=== PATIENT | male | born 1990 | race African-American/Black ===

== ENCOUNTER 2020-04-04 05:29 | Emergency (ER) | payer SELFPAY ==
[2020-04-04] VITALS (7 sets, daily range): BP systolic 131–170; BP diastolic 92–128; PULSE 70–93; RESP 16–20; TEMP 36.8; O2SAT 96–100
--- NOTE | ~2020-04-04 | XR_ITS ---
EXAMINATION: XR chest 1V portable EXAM DATE: 04/04/2020 06:17 INDICATION: Difficulty breathing. TECHNIQUE: Portable AP frontal chest x-ray was obtained. There is no prior study for comparison. FINDINGS: The lungs are clear. There are no pleural effusions. The cardiomediastinal silhouette is within normal limits. There is no pneumothorax suspected. The bones and soft tissues are unremarkab le. IMPRESSION: No acute cardiopulmonary findings. Reviewed, dictated and finalized at location B.
--- NOTE | ~2020-04-04 | CT_ITS ---
EXAMINATION: CT soft tissue neck w con EXAM DATE: 04/04/2020 07:05 INDICATION: Throat pain. TECHNIQUE: Spiral CT of the neck was performed following intravenous injection of 75 mL Omnipaque 350 . Axial, coronal and sagittal images were reviewed. The dose-length product (DLP) for this examinat ion was 492.47 mGy-cm. The exposure was tailored according to patient size (auto mA exposure control ), and iterative reconstruction (ASIR) was used as additional dose reduction technique. There is no prior study for comparison. FINDINGS: The thyroid gland is unremarkable. The submandibular and parotid glands are symmetric. There is no cervical lymphadenopathy. There are no masses identified. The superior mediastinum is unremarkable. The airway is unremarkable. Parapharyngeal and pre-glottic fat planes are preserve d. The opacified vasculature is patent. The orbits are unremarkable. Visualized sinuses and mas toid air cells are well aerated. Clear lung apices. There are no osseous abnormalities identified. IMPRESSION: Unremarkable CT neck exam. Reviewed, dictated and finalized at location B. IMPRESSION: Unremarkable CT neck exam.
--- NOTE | 2020-04-04 05:38 | ECG_ITS ---
Measurements Intervals [place] Rate: 87 P: 31 DE: 132 QRS: 15 QRSD: 113 T: 7 QT: 367 QTc: 443 Interpretive Statements SINUS RHYTHM INTRAVENTRICULAR CONDUCTION DELAY VOLTAGE CRITERIA FOR LVH MINIMAL Q WAVES- HIGH LATERAL LEADS NONSPECIFIC T-WAVE ABNORMALITY- INFERIOR LEADS BASELINE ARTIFACT- II, III, AVL, AVF BORDERLINE ECG Electronically Signed On 04-05-2020 14:21:31 CDT by Galen Baumann D.O.
--- NOTE | 2020-04-04 05:49 | ED.GENADULT ---
HPI - General Adult General Chief complaint: Shortness of Breath/Dyspnea <Martín Perea DO - Last Filed: 04/04/20 06:19> Stated complaint: sob <Martín Perea DO - Last Filed: 04/04/20 06:19> Time Seen by Provider: 04/04/20 05:33 <Martín Perea DO - Last Filed: 04/04/20 06:19> Source: RN notes reviewed <Martín Perea DO - Last Filed: 04/04/20 06:19> History of Present Illness HPI narrative: Patient presents emergency department from home for shortness of breath. Patient states that for the past several months he has been having a feeling that something is been stuck in his throat. He states at times it feels like it is hard to swallow he states that this evening he was laying in bed and was having difficult time and he began to feel more short of breath. He states at that time he began to hyperventilate and had tingling in his bilateral hands. He denies any fevers or chills chest pain abdominal pain nausea vomiting or any other symptoms. Patient states he took no previous medication for the symptoms <Martín Perea DO - Last Filed: 04/04/20 06:19> Related Data Allergies/adverse reactions: Allergies Allergy/AdvReac Type Severity Reaction Status Date / Time No Known Allergies Allergy Verified 04/04/20 05:43 <Martín Perea DO - Last Filed: 04/04/20 06:19> Review of Systems Review of Systems: Narrative: Gen.: Denies fevers or chills Eyes: Denies eye pain or visual change ENT: Reports feeling of something stuck in his throat Respiratory: Reports shortness of breath CV: Denies chest pain or palpitations GI: Denies abdominal pain nausea, emesis or diarrhea denies burning, urgency, frequency or hematuria Musculoskeletal: Denies back pain or muscle pain Neuro: Denies numbness, tingling, weakness or focal weakness Skin: Denies rash Except as documented, all other systems reviewed and negative <DO Cirilo Perry Last Filed: 04/04/20 06:19> PMFSH Past Medical History Medical History: Medical History (Updated 04/04/20 @ 08:47 by Alina Noe MD) Patient denies significant medical history <Martín Perea DO - Last Filed: 04/04/20 06:19> Social History Social History: Social History (Updated 04/04/20 @ 05:50 by Martín Perea DO) Smoking status: Never smoker <Martín Perea DO - Last Filed: 04/04/20 06:19> Exam Narrative: Exam Narrative: APPEARANCE: Anxious in appearance, nontoxic, resting in bed EYES: EOMI HEENT: Normocephalic, atraumatic, OMM, airway patent voice normal, uvula midline Neck: Supple, nontender to palpation RESPIRATORY: No respiratory distress Clear to auscultation bilaterally with no rhonchi wheezing or rales. CARDIOVASCULAR: Regular rate and rhythm without murmurs rubs or gallops. ABDOMINAL: Soft, nontender, nondistended, no rebound or guarding MUSCULOSKELETAl: Moves all extremities. No clubbing, cyanosis or edema. NEURO: Awake and alert. Following commands, speech normal, no focal deficits SKIN:: Warm, dry. No rashes lesions or abrasions PSYCHIATRIC: Anxious in appearance <Martín Perea DO - Last Filed: 04/04/20 06:19> Course Reevaluation(s) Reevaluation #1: Patient is laying in bed in no acute distress and able to handle secretions. I discussed with patient and family that he will need to follow up . Ct was unremarkable and he will need to follow up with GI as an outpatient. <Alina Noe MD - Last Filed: 04/04/20 18:14> Date: 04/04/20 <Alina Noe MD - Last Filed: 04/04/20 18:14> Time: 08:45 <Alina Noe MD - Last Filed: 04/04/20 18:14> Vital Signs Vital signs: Vital Signs Temperature 98.2 F 04/04/20 05:37 Pulse Rate 93 04/04/20 05:37 Respiratory Rate 20 04/04/20 05:37 Blood Pressure 170/128 H 04/04/20 05:37 Pulse Oximetry 98 04/04/20 05:37 Temperature 98.2 F 04/04/20 05:37 Pulse Rate 70 04/04/20 09:00 Respiratory
[2020-04-04] MEDS: LORazepam INJ (*CRX) 2 MG/ML VIAL 0.5 MG IV PUSH (05:55)
[2020-04-04] MEDS: SODIUM CHLORIDE 0.9% IV 1,000 ML 999 ML IV CONT (05:56)
[2020-04-04 06:08] LABS: Basophils Absolute Auto 0.1 K/mm3 (0.0-0.1); Basophils Percent Auto 1.1 % (0.2-1.2); Eosinophils Absolute Auto 0.3 K/mm3 (0-0.3); Eosinophils Percent Auto 3.9 % (0-4.4); Hematocrit 45.9 % (42.0-52.0); Hemoglobin 15.1 g/dL (14.0-18.0); Immature Granulocyte Absolute 0.02 K/mm3 (0.00-0.031); Immature Granulocyte Percent A 0.3 % (0-0.5); Lymphocytes Absolute Auto 3.61 K/mm3 (0.9-3.2); Lymphocytes Percent Auto 48.9 % (18.3-44.2); Mean Corpuscular HGB Conc 32.9 g/dl (32-36); Mean Corpuscular Hemoglobin 28.6 pg (26-34); Mean Corpuscular Volume 86.9 fl (80-100); Mean Platelet Volume 11.4 fl (7.4-10.4); Monocytes Absolute Auto 0.7 K/mm3 (0.1-0.6); Monocytes Percent Auto 9.9 % (2.6-8.5); Neutrophils Absolute Auto 2.7 K/mm3 (1.3-6.7); Neutrophils Percent Auto 35.9 % (45.5-73.1); Platelet Count Result 279 k/mm3 (150-375); Red Blood Count 5.28 M/mm3 (4.6-6.20); Red Cell Distribution Width 13.8 % (11.5-14.5); White Blood Count 7.4 K/mm3 (4.5-10.0)
[2020-04-04 06:33] LABS: Alanine Aminotransferase 14 U/L (4-50); Albumin Level 4.7 g/dL (3.5-5.1); Alkaline Phosphatase 62 U/L (38-126); Anion Gap 12 mmol/L (8-16); Aspartate Amino Transferase 22 U/L (17-59); Bilirubin,Total 0.4 mg/dL (0.2-1.3); Blood Urea Nitrogen 18 mg/dL (9-20); Calcium 9.2 mg/dL (8.4-10.2); Carbon Dioxide 27 mmol/L (22-30); Chloride 103 mmol/L (98-107); Estimated CRCL calculation 94 ml/min; Estimated Glomerular Filt Rate > 60; Glucose 163 mg/dL (75-110); Potassium 2.8 mmol/L (3.4-5.0); Sodium 142 mmol/L (137-145)
[2020-04-04 06:39] LABS: Troponin I < 0.012 ng/mL (0.000-0.034)
[2020-04-04] MEDS: POTASSIUM CHLORIDE 20 MEQ TABLET 40 MEQ PO (06:59)
[2020-04-04 07:30] LABS: Magnesium 2.1 mg/dL (1.6-2.3)
== END 2020-04-04 09:00 | disposition home or self-care (01) ==
PROVIDERS: Emergency Medicine; Emergency Provider General Practice
DX: R13.10 Dysphagia, unspecified (principal); I45.9 Conduction disorder, unspecified; R94.31 Abnormal electrocardiogram [ECG] [EKG]
CPT/HCPCS: 36415; 70491; 71045; 80053; 83735; 84484; 85025; 93005; 96361; 96374; 99284; A9270; J2060; J7030; Q9967

== ENCOUNTER 2025-01-27 11:48 | Emergency (ER) | payer OTHER, SELFPAY ==
[2025-01-27 11:59] VITALS: BP 150/104; PULSE 68; RESP 18; TEMP 36.8; O2SAT 100
--- NOTE | 2025-01-27 12:06 | ED_ITS ---
HPI - General Adult General Chief complaint: Upper Respiratory Infection Stated complaint: Facial Pain/Sore Throat Time Seen by Provider: 01/27/25 12:06 Source: patient Mode of arrival: ambulatory Limitations: no limitations History of Present Illness HPI narrative: 34-year-old male patient presents to the [facility] with complaints of right- sided throat pain that has been going on for about a year now. Patient also states that having slight mouth pain to the right side and states that whenever he has his ear noticed some red bumps on his head. Denies fevers body aches or chills. Patient states at times he takes the Tylenol and ibuprofen for his pain. Patient denies having a primary doctor. Denies any chest pain or shortness of breath. Denies any abdominal pain nausea vomiting or diarrhea. Related Data Home Medications ?Medication ?Instructions ?Recorded ?Confirmed ?Last Taken ?Type No Home Medications 01/27/25 01/27/25 Unknown History Allergies Allergy/AdvReac Type Severity Reaction Status Date / Time No Known Allergies Allergy Verified 01/27/25 12:17 Review of Systems Review of Systems: CONSTITUTIONAL: Denies fever, chills, or sweats. EYES: Denies visual changes, redness, or discharge. ENT: Denies rhinorrhea, congestion, positive right-sided sore throat, denies otalgia. Positive dental pain to bottom right CARDIOVASCULAR: Denies chest pain, palpitations, or edema. RESPIRATORY: Denies cough or dyspnea. GASTROINTESTINAL: Denies abdominal pain, nausea, vomiting, or diarrhea. GENITOURINARY: Denies dysuria or hematuria. SKIN: Denies rash or itching. Positive rash to head after cutting his hair MUSCULOSKELETAL: Denies back pain, joint pain, or myalgia. NEUROLOGIC: Denies headache, numbness, or weakness. PSYCHIATRIC: Denies anxiety or depression. PMFSH Past Medical History Medical History Patient denies significant medical history Social History Social History Smoking status: Never smoker Comments At the time of my signature I agree with nursing past medical history, surgical, social, and family history. There is no relevant family history pertinent to the presenting complaint. Exam Narrative: GENERAL: Well-appearing, well-nourished, and in no acute distress. HEAD: Normocephalic, atraumatic. No obvious rash noted at this time to the head. EYES: PERRLA and EOMI. ENT: Nares clear, no rhinorrhea or epistaxis. Mucous membranes moist. Posterior pharynx with no erythema, tonsillar enlargement, exudates or lesions present. Bilateral TMs are clear no erythema or foreign bodies the canal. Patient does have a broken molar noted to the bottom right side. There is no erythema or tenderness noted to the gum at this time and no evidence of an infection. NECK: Supple. No obvious lymphadenopathy CHEST: Clear to auscultation. No respiratory distress. HEART: Regular rate and rhythm. No murmur heard. Normal peripheral pulses. ABDOMEN: Soft, nontender, nondistended, normal active bowel sounds. EXTREMITIES: Normal range of motion. No edema. SKIN: Warm, dry, no rash. NEURO: No focal deficits. Alert and oriented x3. Course Course Level of Care: Express Care Visit Vital Signs Vital signs: Vital Signs Temperature 36.8 C 01/27/25 11:59 Pulse Rate 68 01/27/25 11:59 Respiratory Rate 18 01/27/25 11:59 Blood Pressure 150/104 H 01/27/25 11:59 Pulse Oximetry 100 01/27/25 11:59 Oxygen Delivery Room Air 01/27/25 11:59 Temperature 36.8 C 01/27/25 11:59 Pulse Rate 68 01/27/25 11:59 Respiratory Rate 18 01/27/25 11:59 Blood Pressure 150/104 H 01/27/25 11:59 Pulse Oximetry 100 01/27/25 11:59 Oxygen Delivery Room Air 01/27/25 11:59 Vital signs reviewed. The patient has been informed that they may have pre-hypertension or Hypertension based on a BP reading in the department. I recommend that the patient call the primary care provider listed on their discharge instructions or a physician of their choice this week to arrange follow up for further evaluation of possible pre-hypertension or Hypertension Medical Decision Making MDM Narrative Medical decision making narrative: Discussed with patient that his point of care strep test has come back negative. We will send it to the lab for culture. Discussed with patient that if he has had a chronic sore throat on 1 side of his throat for a year now he needs to follow up and get further testing. Discussed with him that many times this could be thyroid issues causing his symptoms or other things that need to be checked out. We will refer him today to a primary doctor and highly encouraged him to call next week to establish care and get a full panel of blood work and further assessment. Discussed with patient we will also provide him a dental sheet and he needs to have the broken tooth either removed or repaired to prevent infection and the future. I do not see an obvious infection at this time therefore I continue to recommend [id number] Tylenol and Motrin as needed for any pain or discomfort. Discussed with patient that he does have a lot of tartar and so it is very important that he gets his teeth clean to prevent infection as well. Patient is aware the plan of care denies any other questions or concerns at this time. Differential Diagnosis Differential Diagnosis: Differential diagnosis: Viral pharyngitis, pharyngitis, group A strep, infectious mononucleosis, gonococcal pharyngitis, exudative pharyngitis, oral candidiasis. Chronic allergies, postnasal drip, GERD, abscess formation, but glottitis, retropharyngeal abscess formation, or airway obstruction. Vital Signs Vital Signs: Vital Signs Temperature 36.8 C 01/27/25 11:59 Pulse Rate 68 01/27/25 11:59 Respiratory Rate 18 01/27/25 11:59 Blood Pressure 150/104 H 01/27/25 11:59 Pulse Oximetry 100 01/27/25 11:59 Oxygen Delivery Room Air 01/27/25 11:59 Temperature 36.8 C 01/27/25 11:59 Pulse Rate 68 01/27/25 11:59 Respiratory Rate 18 01/27/25 11:59 Blood Pressure 150/104 H 01/27/25 11:59 Pulse Oximetry 100 01/27/25 11:59 Oxygen Delivery Room Air 01/27/25 11:59 Lab Data Labs: Lab Results 01/27/25 Range/Units 12:23 POC Grp A Strep Screen Negative (Negative) Critical Care Time Critical Care Time Critical Care Time: No Discharge Plan Discharge Clinical Impression: Pharyngitis, Broken or cracked tooth, nontraumatic Patient Disposition: Home Condition: Stable Instructions: Antibiotic Form, Pharyngitis (ED) Additional Instructions: A sore throat can be caused by an infection from a virus or bacteria. Sore throat can also be caused by postnasal drip, allergies, and exposure to smoke. A viral sore throat last 3-4 days and cannot be treated with antibiotics. One type of sore throat virus, infectious mononucleosis (mono), can last for 3 weeks and older children. The germs that cause these infections are contagious and can be spread by coughing or sharing drinks or utensils. Contact her primary care physician or go to the ER if: Your trouble breathing or swallowing because her throat is swollen or sore. You're drooling because it hurts too much to swallow. You're painful lump in your throat go away after 5 days. You're fever is higher than 10 2??F or last longer than 3 days. You have confusion. You are blood in your throat. You're sore throat should feel better within 3-5 days without treatment if it is caused by virus. You may need the following: Ibuprofen or Tylenol as needed for pain or fever Gargle warm salt water Drink more liquids, cold or warm drinks may help soothe her throat. Humidifier in your room. Cough drops, ice, soft foods, or popsicles may help soothe her throat. A spoonful of honey could help with inflammation and soothe her throat. Wash her hands with soap and water, do not share food or drinks, throat away her toothbrush after 72 hours. Please contact the primary care provider for further evaluation. Many times or chronic sore throat could be due to other things like thyroid issues and you would need to follow up and get further treatment for this. Please call follow-up with dentist the broken tooth while not infected at this time does pose a risk for infection in the future and you need to get it removed or fix. Patient Language: Macedonian Prescriptions: No Action No Home Medications Follow-up/Referrals: Shanelle Irene MD [Physician] - PHYSICIAN,[employer] OR [employer] [Primary Care Provider] - Time of Disposition: 12:29
[2025-01-27 12:25] LABS: EDSTREPNEGPOS1 Negative (Negative)
== END 2025-01-27 12:48 | disposition home or self-care (01) ==
PROVIDERS: Emergency Provider Nurse Practitioner Family
DX: J02.9 Acute pharyngitis, unspecified (principal); K03.81 Cracked tooth
CPT/HCPCS: 87081; 87880; 99213; G0463

== ENCOUNTER 2025-02-11 11:06 | Emergency (ER) | payer OTHER, SELFPAY ==
[2025-02-11 11:16] VITALS: BP 159/104; PULSE 86; RESP 17; TEMP 36.9; O2SAT 98
--- NOTE | 2025-02-11 11:39 | ED_ITS ---
HPI - Dental/Oral General Chief complaint: Dental/Oral Stated complaint: broken tooth, swollen R. side of face Time Seen by Provider: 02/11/25 11:12 Related Data Allergies Allergy/AdvReac Type Severity Reaction Status Date / Time No Known Allergies Allergy Verified 02/11/25 11:16 [facility] Past Medical History Medical History Patient denies significant medical history Social History Social History Smoking status: Never smoker Course Vital Signs Vital signs: Vital Signs Temperature 36.9 C 02/11/25 11:16 Pulse Rate 86 02/11/25 11:16 Respiratory Rate 17 02/11/25 11:16 Blood Pressure 159/104 H 02/11/25 11:16 Pulse Oximetry 98 02/11/25 11:16 Oxygen Delivery Room Air 02/11/25 11:16 Temperature 36.9 C 02/11/25 11:16 Pulse Rate 86 02/11/25 11:16 Respiratory Rate 17 02/11/25 11:16 Blood Pressure 159/104 H 02/11/25 11:16 Pulse Oximetry 98 02/11/25 11:16 Oxygen Delivery Room Air 02/11/25 11:16 Discharge Plan Discharge Clinical Impression: Dental abscess, Dental caries Patient Disposition: Home Condition: Stable Instructions: Antibiotic Form, Dental Abscess (ED), Toothache (ED) Additional Instructions: Return if symptoms are worsening , call dentist for appointment, take Tylenol as as needed for aches and pain, continue home medications. Patient Language: Barbadian Prescriptions: New penicillin V potassium 500 mg tablet 500 mg PO Q6H Qty: 40 0RF metronidazole 500 mg tablet 500 mg PO Q12H Qty: 20 0RF ibuprofen 800 mg tablet 800 mg PO TID PRN (Reason: pain) Qty: 20 0RF Follow-up/Referrals: PHYSICIAN,[employer] SUPERVISOR [Primary Care Provider] - Stand Alone Forms: Work/School Release IP
== END 2025-02-11 12:19 | disposition home or self-care (01) ==
LOC: ANHED 11:45
PROVIDERS: Emergency Provider Emergency Medicine
DX: K04.7 Periapical abscess without sinus (principal); K02.9 Dental caries, unspecified
CPT/HCPCS: 99283